=== PATIENT | female | born 1985 | race Caucasian/White ===

== ENCOUNTER 2022-04-25 19:26 | Inpatient (IN) | payer MEDICAID ==
[~2022-04-25] VITALS: Ht 162.6 cm; Wt 149.8 kg
[2022-04-25 20:53] LABS: BASOPHILS % 0.3 % (0.0-2.0); EOSINOPHILS % 0.4 % (0.0-5.0); HEMATOCRIT. 37.4 % (36.0-48.0); HEMOGLOBIN. 12.7 g/dL (12.0-16.0); LYMPHOCYTES % 13.9 % (20.0-50.0); MEAN CORPUSCULAR HEMOGLOBIN 30.6 pg (28.0-32.0); MEAN CORPUSCULAR VOLUME 90.4 fL (81.0-99.0); MEAN PLATELET VOLUME 9.5 fl (7.4-10.4); MONOCYTES % 7.6 % (2.0-8.0); NEUTROPHILS % 77.8 % (40.0-76.0); PLATELET 396 x1000/uL (130-400); RED BLOOD CELL COUNT 4.13 mill/uL (4.2-5.4); RED CELL DISTRIBUTION WIDTH 13.2 % (11.6-14.6)
[2022-04-25 20:59] LABS: CHLORIDE 101 mEq/L (98-107)
[2022-04-25 21:06] LABS: HCG SCREEN NEGATIVE
[2022-04-25 21:10] LABS: CLARITY URINE CLEAR (CLEAR); COLOR URINE YELLOW (YELLOW); KETONES URINE NEGATIVE (NEGATIVE); LEUKOCYTE ESTERASE URINE NEGATIVE (NEGATIVE); NITRITE URINE NEGATIVE (NEGATIVE); OCCULT BLOOD URINE 2+ (NEGATIVE); PH URINE 8.5 (4.5-8.0); PROTEIN URINE TRACE (NEGATIVE); SPECIFIC GRAVITY URINE 1.009 (1.005-1.030)
[2022-04-25] MEDS ORDERED: MORPHINE SULFATE 4 MG/ML CPJ (NOT FOR IM USE) IV ONE (22:15)
[2022-04-25] MEDS ORDERED: PIPERACILLIN/TAZ 3.375G PREMIX 50 ML IV ONE (22:15)
[2022-04-26] MEDS: MORPHINE SULFATE 4 MG/ML CPJ (NOT FOR IM USE) IV PRN ×3 (04:00→20:13)
[2022-04-26] MEDS ORDERED: DOCUSATE SODIUM 100MG CAPSULE PO PRN (07:45)
[2022-04-26] MEDS ORDERED: DIPHENHYDRAMINE 50MG/ML VIAL IV PRN (07:45)
[2022-04-26] MEDS ORDERED: ACETAMINOPHEN 650MG SUPP PR PRN (07:45)
[2022-04-26] MEDS ORDERED: GUAIFENESIN 200MG/10ML SUGAR FREE UDC PO PRN (07:45)
[2022-04-26] MEDS ORDERED: CLONIDINE 0.1MG TABLET PO PRN (07:45)
[2022-04-26] MEDS ORDERED: ONDANSETRON HCL 4MG/2ML INJ IV PRN (07:45)
[2022-04-26] MEDS ORDERED: ACETAMINOPHEN 650MG/20.3ML UDC GT PRN (07:45)
[2022-04-26] MEDS ORDERED: MAGNESIUM/ALUMINUM HYDROXIDE/SIMETHICONE 30ML UDC PO PRN (07:45)
[2022-04-26] MEDS ORDERED: IPRATROPIUM/ALBUTEROL 0.5-3(2.5)MG/3ML NEB HHN PRN (07:45)
[2022-04-26] MEDS ORDERED: VANCOMYCIN 1G PREMIX 200 ML IV SCH (08:30)
[2022-04-26] MEDS ORDERED: NALOXONE HCL 0.4MG/ML VIAL IV PRN (08:45)
[2022-04-26] MEDS ORDERED: PIPERACILLIN/TAZ 3.375G PREMIX 50 ML IV SCH (09:00)
[2022-04-26] MEDS ORDERED: VANCOMYCIN 2,000 MG in DEXT 5% WATER 500 ML IV SCH (11:00)
[2022-04-26 11:22] LABS: BASOPHILS % 0.4 % (0.0-2.0); EOSINOPHILS % 0.5 % (0.0-5.0); HEMATOCRIT. 34.9 % (36.0-48.0); HEMOGLOBIN. 11.8 g/dL (12.0-16.0); LYMPHOCYTES % 14.6 % (20.0-50.0); MEAN CORPUSCULAR HEMOGLOBIN 30.4 pg (28.0-32.0); MEAN CORPUSCULAR VOLUME 90.1 fL (81.0-99.0); MEAN PLATELET VOLUME 9.2 fl (7.4-10.4); MONOCYTES % 7.3 % (2.0-8.0); NEUTROPHILS % 77.2 % (40.0-76.0); PLATELET 377 x1000/uL (130-400); RED BLOOD CELL COUNT 3.87 mill/uL (4.2-5.4); RED CELL DISTRIBUTION WIDTH 13.1 % (11.6-14.6)
[2022-04-26 11:33] LABS: CHLORIDE 101 mEq/L (98-107)
[2022-04-26 11:49] LABS: CREATINE KINASE 41 IU/L (26-192); HDL CHOLESTEROL 41 mg/dL (40-59); LDL CHOLESTEROL 100 mg/dL (5-100)
[2022-04-26] MEDS: PIPERACILLIN/TAZOBACTAM 3.375 G in DEXTROSE 5% WATER 50 ML IV SCH ×4 (11:51→22:51)
[2022-04-26 12:00] VITALS: BP 110/59
[2022-04-26] MEDS: DEXT 5%/0.45% NACL 1000ML 1,000 ML IV SCH (12:06)
[2022-04-26] MEDS ORDERED: VANCOMYCIN 1250MG in DEXTROSE 5% WATER 250ML IV SCH (14:00)
[2022-04-26 16:00] VITALS: BP 124/60
[2022-04-26 17:12] VITALS: BP 135/68
[2022-04-26 20:00] VITALS: BP 126/63
[2022-04-26] MEDS: VANCOMYCIN 1250MG in DEXTROSE 5% WATER 250ML IV SCH (20:25)
[2022-04-27] VITALS: BP 123/73
[2022-04-27] MEDS: DEXT 5%/0.45% NACL 1000ML 1,000 ML IV SCH ×2 (00:30→14:07)
[2022-04-27 04:00] VITALS: BP 116/58
[2022-04-27] MEDS: MORPHINE SULFATE 4 MG/ML CPJ (NOT FOR IM USE) IV PRN ×3 (04:18→20:12)
[2022-04-27] MEDS: VANCOMYCIN 1250MG in DEXTROSE 5% WATER 250ML IV SCH ×2 (05:11→14:03)
[2022-04-27] MEDS: PIPERACILLIN/TAZOBACTAM 3.375 G in DEXTROSE 5% WATER 50 ML IV SCH ×3 (06:51→21:15)
[2022-04-27 07:31] LABS: BASOPHILS % 0.2 % (0.0-2.0); EOSINOPHILS % 1.3 % (0.0-5.0); HEMOGLOBIN. 12.1 g/dL (12.0-16.0); LYMPHOCYTES % 17.7 % (20.0-50.0); MEAN CORPUSCULAR HEMOGLOBIN 30.5 pg (28.0-32.0); MEAN CORPUSCULAR VOLUME 90.7 fL (81.0-99.0); MEAN PLATELET VOLUME 9.5 fl (7.4-10.4); MONOCYTES % 5.9 % (2.0-8.0); NEUTROPHILS % 74.9 % (40.0-76.0); PLATELET 417 x1000/uL (130-400); RED BLOOD CELL COUNT 3.98 mill/uL (4.2-5.4); RED CELL DISTRIBUTION WIDTH 13.3 % (11.6-14.6)
[2022-04-27 07:40] LABS: CHLORIDE 100 mEq/L (98-107)
[2022-04-27 08:00] VITALS: BP 106/53
[2022-04-27 12:00] VITALS: BP 118/64
[2022-04-27 16:00] VITALS: BP 91/49
[2022-04-27] MEDS: DEXT 5%/LACTATED RINGERS 1,000 ML IV SCH ×2 (18:00→21:16)
[2022-04-27] MEDS: MIDODRINE HCL 5MG TABLET PO SCH (18:19)
[2022-04-27 20:00] VITALS: BP 140/68
[2022-04-27] MEDS: LORAZEPAM 2MG/ML CPJ IV PRN (20:22)
[2022-04-28] VITALS: BP 151/50
[2022-04-28 04:00] VITALS: BP 123/60
[2022-04-28] MEDS: PIPERACILLIN/TAZOBACTAM 3.375 G in DEXTROSE 5% WATER 50 ML IV SCH ×3 (05:30→21:10)
[2022-04-28] MEDS: MORPHINE SULFATE 4 MG/ML CPJ (NOT FOR IM USE) IV PRN ×3 (05:30→21:15)
[2022-04-28] MEDS ORDERED: LIDOCAINE HCL/PF 1% 10 MG/ML 5ML VIAL ONE (07:48)
[2022-04-28 08:00] VITALS: BP 126/72
[2022-04-28 08:04] LABS: BASOPHILS % 0.3 % (0.0-2.0); EOSINOPHILS % 2.2 % (0.0-5.0); HEMATOCRIT. 35.8 % (36.0-48.0); LYMPHOCYTES % 18.5 % (20.0-50.0); MEAN CORPUSCULAR HEMOGLOBIN 30.4 pg (28.0-32.0); MEAN CORPUSCULAR VOLUME 90.8 fL (81.0-99.0); MEAN PLATELET VOLUME 9.9 fl (7.4-10.4); MONOCYTES % 6.3 % (2.0-8.0); NEUTROPHILS % 72.7 % (40.0-76.0); PLATELET 431 x1000/uL (130-400); RED BLOOD CELL COUNT 3.95 mill/uL (4.2-5.4); RED CELL DISTRIBUTION WIDTH 13.2 % (11.6-14.6)
[2022-04-28] MEDS: MIDODRINE HCL 5MG TABLET PO SCH ×3 (08:29→17:00)
[2022-04-28 12:00] VITALS: BP 131/84
[2022-04-28] MEDS: DEXT 5%/LACTATED RINGERS 1,000 ML IV SCH (13:26)
[2022-04-28 16:00] VITALS: BP 120/84
[2022-04-28] MEDS ORDERED: TRAMADOL 50MG TABLET PO PRN (19:00)
[2022-04-28] MEDS ORDERED: NICOTINE 21MG PATCH TD SCH (19:00)
[2022-04-28 20:00] VITALS: BP 119/76
[2022-04-28] MEDS: LORAZEPAM 2MG/ML CPJ IV PRN (21:32)
[2022-04-29] MEDS: MORPHINE SULFATE 4 MG/ML CPJ (NOT FOR IM USE) IV PRN ×4 (03:37→21:44)
[2022-04-29] MEDS: PIPERACILLIN/TAZOBACTAM 3.375 G in DEXTROSE 5% WATER 50 ML IV SCH ×3 (05:19→21:31)
[2022-04-29 08:00] VITALS: BP 116/65
[2022-04-29 08:10] LABS: CHLORIDE 104 mEq/L (98-107)
[2022-04-29 08:14] LABS: BASOPHILS % 0.5 % (0.0-2.0); EOSINOPHILS % 2.7 % (0.0-5.0); HEMATOCRIT. 36.7 % (36.0-48.0); HEMOGLOBIN. 12.1 g/dL (12.0-16.0); LYMPHOCYTES % 28.8 % (20.0-50.0); MEAN CORPUSCULAR HEMOGLOBIN 30.6 pg (28.0-32.0); MEAN CORPUSCULAR VOLUME 92.7 fL (81.0-99.0); MEAN PLATELET VOLUME 9.3 fl (7.4-10.4); MONOCYTES % 8.3 % (2.0-8.0); NEUTROPHILS % 59.7 % (40.0-76.0); PLATELET 455 x1000/uL (130-400); RED BLOOD CELL COUNT 3.96 mill/uL (4.2-5.4); RED CELL DISTRIBUTION WIDTH 13.3 % (11.6-14.6)
[2022-04-29] MEDS: MIDODRINE HCL 5MG TABLET PO SCH ×3 (09:15→16:32)
[2022-04-29] MEDS ORDERED: IOHEXOL-300 100 ML BOTTLE ONE (10:14)
[2022-04-29] MEDS: DEXT 5%/LACTATED RINGERS 1,000 ML IV SCH ×2 (10:48→21:32)
[2022-04-29 12:00] VITALS: BP 110/65
[2022-04-29 16:00] VITALS: BP 113/70
[2022-04-29] MEDS ORDERED: MINERAL OIL ENEMA 133ML PR NR (17:30)
[2022-04-29] MEDS: DOCUSATE SODIUM 100MG CAPSULE PO SCH (18:15)
[2022-04-29] MEDS ORDERED: SENN-257 MT ×2 (19:26)
[2022-04-29] MEDS ORDERED: METR-167 MT ×4 (19:26→21:06)
[2022-04-29] MEDS ORDERED: LEVO750T46 MT ×4 (19:26→21:06)
[2022-04-29 20:00] VITALS: BP 123/75
[2022-04-29] MEDS ORDERED: HYDR-4001 MT ×2 (21:02)
[2022-04-29] MEDS ORDERED: AMOX1TAB15 MT ×2 (21:02)
[2022-04-29] MEDS ORDERED: SENN-257 PO ×2 (21:06)
[2022-04-30] VITALS: BP 127/77
[2022-04-30] MEDS: MORPHINE SULFATE 4 MG/ML CPJ (NOT FOR IM USE) IV PRN (03:14)
[2022-04-30 04:00] VITALS: BP 117/66
[2022-04-30] MEDS: LEVOFLOXACIN 250MG TABLET PO SCH ×2 (05:05→12:17)
[2022-04-30] MEDS: PIPERACILLIN/TAZOBACTAM 3.375 G in DEXTROSE 5% WATER 50 ML IV SCH ×3 (05:06→21:24)
[2022-04-30] MEDS: DEXT 5%/LACTATED RINGERS 1,000 ML IV SCH ×2 (05:07→17:21)
[2022-04-30] MEDS: METRONIDAZOLE 500MG TABLET PO SCH ×4 (05:09→17:20)
[2022-04-30 08:00] VITALS: BP 115/74
[2022-04-30] MEDS: DOCUSATE SODIUM 100MG CAPSULE PO SCH ×3 (08:58→17:20)
[2022-04-30] MEDS: MIDODRINE HCL 5MG TABLET PO SCH ×3 (08:58→17:21)
[2022-04-30 15:31] LABS: BASOPHILS % 0.6 % (0.0-2.0); EOSINOPHILS % 2.5 % (0.0-5.0); HEMOGLOBIN. 12.6 g/dL (12.0-16.0); LYMPHOCYTES % 24.3 % (20.0-50.0); MEAN CORPUSCULAR HEMOGLOBIN 30.2 pg (28.0-32.0); MEAN CORPUSCULAR VOLUME 90.7 fL (81.0-99.0); MEAN PLATELET VOLUME 9.2 fl (7.4-10.4); NEUTROPHILS % 66.6 % (40.0-76.0); PLATELET 558 x1000/uL (130-400); RED BLOOD CELL COUNT 4.19 mill/uL (4.2-5.4)
[2022-04-30 16:00] VITALS: BP 120/75
[2022-04-30 16:09] LABS: CHLORIDE 101 mEq/L (98-107)
[2022-04-30 20:00] VITALS: BP 123/69
[2022-05-01] VITALS: BP 133/91
[2022-05-01] MEDS: DEXT 5%/LACTATED RINGERS 1,000 ML IV SCH ×3 (01:34→23:05)
[2022-05-01 04:00] VITALS: BP 135/92
[2022-05-01] MEDS: PIPERACILLIN/TAZOBACTAM 3.375 G in DEXTROSE 5% WATER 50 ML IV SCH (05:20)
[2022-05-01 07:47] LABS: BASOPHILS % 0.4 % (0.0-2.0); EOSINOPHILS % 3.5 % (0.0-5.0); HEMATOCRIT. 35.5 % (36.0-48.0); LYMPHOCYTES % 23.9 % (20.0-50.0); MEAN CORPUSCULAR HEMOGLOBIN 30.4 pg (28.0-32.0); MEAN CORPUSCULAR VOLUME 90.3 fL (81.0-99.0); MEAN PLATELET VOLUME 9.3 fl (7.4-10.4); MONOCYTES % 6.7 % (2.0-8.0); NEUTROPHILS % 65.5 % (40.0-76.0); PLATELET 485 x1000/uL (130-400); RED BLOOD CELL COUNT 3.93 mill/uL (4.2-5.4); RED CELL DISTRIBUTION WIDTH 13.3 % (11.6-14.6)
[2022-05-01 07:59] LABS: CHLORIDE 104 mEq/L (98-107)
[2022-05-01 08:00] VITALS: BP 135/83
[2022-05-01] MEDS: DOCUSATE SODIUM 100MG CAPSULE PO SCH ×3 (09:00→16:14)
[2022-05-01] MEDS: MIDODRINE HCL 5MG TABLET PO SCH ×2 (09:00→13:58)
[2022-05-01] MEDS: METRONIDAZOLE 500MG TABLET PO SCH ×3 (09:05→17:51)
[2022-05-01] MEDS: LEVOFLOXACIN 250MG TABLET PO SCH (10:24)
[2022-05-01 12:00] VITALS: BP 124/63
[2022-05-01 16:00] VITALS: BP 118/71
[2022-05-01 20:00] VITALS: BP 132/83
[2022-05-02] VITALS (7 sets, daily range): BP systolic 114–132; BP diastolic 65–90
[2022-05-02 06:45] LABS: BASOPHILS % 0.3 % (0.0-2.0); EOSINOPHILS % 3.7 % (0.0-5.0); HEMOGLOBIN. 11.7 g/dL (12.0-16.0); LYMPHOCYTES % 29.7 % (20.0-50.0); MEAN CORPUSCULAR HEMOGLOBIN 30.2 pg (28.0-32.0); MEAN CORPUSCULAR VOLUME 90.5 fL (81.0-99.0); MEAN PLATELET VOLUME 8.9 fl (7.4-10.4); MONOCYTES % 5.3 % (2.0-8.0); PLATELET 562 x1000/uL (130-400); RED BLOOD CELL COUNT 3.86 mill/uL (4.2-5.4); RED CELL DISTRIBUTION WIDTH 13.2 % (11.6-14.6)
[2022-05-02] MEDS: DEXT 5%/LACTATED RINGERS 1,000 ML IV SCH ×2 (08:00→18:00)
[2022-05-02 09:01] LABS: CHLORIDE 106 mEq/L (98-107)
[2022-05-02] MEDS: LEVOFLOXACIN 250MG TABLET PO SCH (10:32)
[2022-05-02] MEDS: DOCUSATE SODIUM 100MG CAPSULE PO SCH ×3 (10:32→18:47)
[2022-05-02] MEDS: METRONIDAZOLE 500MG TABLET PO SCH ×3 (10:32→18:47)
[2022-05-02] MEDS ORDERED: LEVO750T46 PO (17:27)
[2022-05-02] MEDS ORDERED: AMOX1TAB15 PO (17:27)
[2022-05-02] MEDS ORDERED: SENN-257 MT (17:27)
[2022-05-02] MEDS ORDERED: HYDR-4001 PO (17:27)
[2022-05-02] MEDS ORDERED: METR-167 PO (17:27)
== END 2022-05-02 20:15 | disposition home or self-care (01) | DRG 244 ==
LOC: ER 19:26 → MICUSO 04-26 00:32 → 6EST 04-26 08:55
PROVIDERS: ADMIT Specialist; ATTEND Specialist
PROC: 05HY33Z Insertion of Infusion Device into Upper Vein, Percutaneous Approach (ICD-10-PCS; principal; 2022-04-28)
PROC: B54MZZA Ultrasonography of Right Upper Extremity Veins, Guidance (ICD-10-PCS; 2022-04-28)
DX: K57.20 Diverticulitis of large intestine with perforation and abscess without bleeding (principal); K65.1 Peritoneal abscess; K66.8 Other specified disorders of peritoneum; R65.10 Systemic inflammatory response syndrome (SIRS) of non-infectious origin without acute organ dysfunction; E44.1 Mild protein-calorie malnutrition; Z68.43 Body mass index [BMI] 50.0-59.9, adult; I10 Essential (primary) hypertension; E66.01 Morbid (severe) obesity due to excess calories; E78.5 Hyperlipidemia, unspecified; K52.9 Noninfective gastroenteritis and colitis, unspecified; K80.20 Calculus of gallbladder without cholecystitis without obstruction; Z98.891 History of uterine scar from previous surgery
CPT/HCPCS: 36415; 36573; 71045; 74176; 74177; 80048; 80053; 80061; 80202; 81003; 82550; 82962; 83605; 84145; 84443; 84484; 84703; 85025; 93005; 93970; 97110; 97161; 97166; 99291; C1725; J2060; J2270; J2405; J2543; J3370; J3490; J7060; J7121; Q9967

== ENCOUNTER 2023-09-02 23:23 | Emergency (ER) | payer SELFPAY ==
[~2023-09-02] VITALS: Ht 163.8 cm; Wt 140.0 kg
[~2023-09-02 23:23] MED LIST: AMOX1TAB15 PO; HYDR-4001 PO; LEVO750T68 PO; METR-167 PO; SENN-257 MT
[2023-09-02 23:38] VITALS: BP 162/91; TEMP 98.5; O2SAT 100
[2023-09-02 23:44] VITALS: PULSE 104; RESP 16
[2023-09-03 00:17] LABS: CLARITY URINE CLOUDY (CLEAR); COLOR URINE YELLOW (YELLOW); GLUCOSE URINE 3+ (NEGATIVE); KETONES URINE NEGATIVE (NEGATIVE); LEUKOCYTE ESTERASE URINE NEGATIVE (NEGATIVE); NITRITE URINE NEGATIVE (NEGATIVE); OCCULT BLOOD URINE 3+ (NEGATIVE); PROTEIN URINE NEGATIVE (NEGATIVE); UROBILINOGEN URINE 0.2 E.U./dL (0.2-1.0)
[2023-09-03 00:31] LABS: BASOPHILS % 0.5 % (0.0-2.0); EOSINOPHILS % 3.5 % (0.0-5.0); HEMATOCRIT. 39.6 % (36.0-48.0); HEMOGLOBIN. 13.1 g/dL (12.0-16.0); LYMPHOCYTES % 50.6 % (20.0-50.0); MEAN CORPUSCULAR HEMOGLOBIN 29.6 pg (28.0-32.0); MEAN CORPUSCULAR HGB CONC 33.1 g/dL (31.0-37.0); MEAN CORPUSCULAR VOLUME 89.4 fL (81.0-99.0); MEAN PLATELET VOLUME 10.9 fl (7.4-10.4); MONOCYTES % 4.4 % (2.0-8.0); PLATELET 345 x1000/uL (130-400); RED BLOOD CELL COUNT 4.43 mill/uL (4.2-5.4); RED CELL DISTRIBUTION WIDTH 13.1 % (11.6-14.6); WHITE BLOOD COUNT 7.7 x1000/uL (4.5-11.0)
[2023-09-03 00:39] LABS: CHLORIDE 100 mEq/L (98-107); INDEX HEMOLYSI 1 (1-3); INDEX ICTERIC 1 (1-4); INDEX LIPEMIC 1 (1-3); POTASSIUM 3.8 mEq/L (3.5-5.1); SODIUM 134 mEq/L (136-145)
[2023-09-03 00:40] LABS: HCG SCREEN NEGATIVE
[2023-09-03 00:47] LABS: ALANINE AMINOTRANSFERASE 39 IU/L (13-61); ALBUMIN 3.5 g/dL (3.4-5.0); ASPARTATE AMINOTRANSFERASE 17 IU/L (15-37); BILIRUBIN TOTAL 0.3 mg/dL (0.1-1.0); CALCIUM 9.2 mg/dL (8.5-10.1); CARBON DIOXIDE 28 mEq/L (21-32); CREATININE 0.7 mg/dL (0.6-1.3); GLUCOSE 385 mg/dL (70-105); PROTEIN TOTAL 7.9 g/dL (6.0-8.3); UREA NITROGEN BLOOD 14 mg/dL (7-21)
[2023-09-03] MEDS ORDERED: SODIUM CHLORIDE 0.9% 1,000 ML IV ONE (01:45)
[2023-09-03 02:09] LABS: SQUAMOUS EPITHELIAL CELL URINE 1+ /lpf (RARE/1+)
[2023-09-03 02:18] LABS: RBC URINE 0-2 /hpf (0-2); WBC URINE 0-2 /hpf (0-2)
[2023-09-03 02:22] LABS: BACTERIA URINE TRACE
[2023-09-03] MEDS ORDERED: METF-817 MT (02:41)
[2023-09-03] MEDS ORDERED: METF-818 MT (02:41)
== END 2023-09-03 06:11 | disposition home or self-care (01) ==
LOC: ER 23:23
DX: E11.65 Type 2 diabetes mellitus with hyperglycemia (principal); Z98.890 Other specified postprocedural states; Z79.899 Other long term (current) drug therapy
CPT/HCPCS: 81003; 82962; 36415; 99283; 80053; 84703; 85025; J7030; Z7610